=== PATIENT | female | born 1995 ===

== ENCOUNTER 2016-07-23 12:45 | Emergency (ER) | payer BC, OTHER ==
[~2016-07-23] VITALS: Ht 168.9 cm; Wt 53.0 kg
[2016-07-23 12:57] VITALS: TEMP 36.6; Ht 168.9 cm; Wt 53.0 kg
[2016-07-23] MEDS ORDERED: IBUPROFEN 600 MG TAB PO STA (13:12)
--- NOTE | 2016-07-23 14:02 | DIAGNOSTIC IMAGING REPORT ---
RIGHT FOOT MIN 3 VIEWS ROUTINE CLINICAL HISTORY: Right foot pain status post trauma COMPARISON: None. DISCUSSION: No fractures or dislocations are visualized. IMPRESSION: No fractures identified. Electronically signed by: Erasmo Medellin M.D. 07/23/2016 2:00 PM Dictated Date/Time: 07/23/2016 1:59 PM
--- NOTE | 2016-07-23 14:07 | DIAGNOSTIC IMAGING REPORT ---
RIGHT KNEE 1 OR 2 VIEWS ROUTINE CLINICAL HISTORY: Right knee pain status post trauma COMPARISON: None. DISCUSSION: No fractures or dislocations are visualized. There are no erosive or destructive changes. IMPRESSION: Unremarkable conventional radiographic evaluation of the right knee. Electronically signed by: Erasmo Medellin M.D. 07/23/2016 2:05 PM Dictated Date/Time: 07/23/2016 2:04 PM
--- NOTE | 2016-07-23 14:19 | EMERGENCY ROOM VISIT NOTE ---
ED Visit Note First contact with patient: 13:07 CHIEF COMPLAINT: Right knee and right foot injury HISTORY OF PRESENT ILLNESS: This 20-year-old female presents the ER with 2 complaints. First complaint is of right foot pain. The patient states yesterday she was doing martial arts and was thrown to the floor striking the medial aspect of her foot onto the floor. Since that time she has pain over the first metatarsal and great toe. The patient has been taking Tylenol for pain. The patient denies any prior injury to the toe. The patient also is complaining of right knee pain for approximately 1 week. The patient states she gets injured frequently at martial arts and does not remember a specific injury but she has difficulty bending her knee. The patient denies any giving out or locking of the knee. The patient denies any redness. REVIEW OF SYSTEMS: 6 system review was performed and was negative unless stated otherwise in history of present illness. PMH: The patient is healthy; spinal cord surgery SOCIAL HISTORY: Patient is a college student. The patient denies any tobacco use but admits to occasional alcohol use. PHYSICAL EXAM: Vital Signs: Were reviewed Reviewed Nurse's notes. GEN.: 20-year -old female appears in no acute distress. MENTAL STATUS: Alert, oriented, and cooperative. RIGHT KNEE: No gross bony deformity noted. The patient is tender to palpation over the patella. There is no joint effusion. The range of motion is limited secondary to pain. There is no ligamentous instability. The skin is normal and intact. The patient walks with an antalgic gait. RIGHT FOOT : No gross bony deformity noted. The patient has erythema and edema noted over the distal portion of the first metatarsal as well as the great toe. Limited range of motion of the great toe secondary to pain. Remainder foot is unremarkable. EMERGENCY DEPARTMENT COURSE: The patient was evaluated. The patient was given Motrin 600 mg by mouth for pain. X-ray of the right foot and right knee were ordered and interpreted by the radiologist and myself. DIAGNOSTICS:RIGHT FOOT MIN 3 VIEWS ROUTINE CLINICAL HISTORY: Right foot pain status post trauma COMPARISON: None. DISCUSSION: No fractures or dislocations are visualized. IMPRESSION: No fractures identified. Electronically signed by: Erasmo Medellin M.D. 07/23/2016 2:00 PM Dictated Date/Time: 07/23/2016 1:59 PM RIGHT KNEE 1 OR 2 VIEWS ROUTINE CLINICAL HISTORY: Right knee pain status post trauma COMPARISON: None. DISCUSSION: No fractures or dislocations are visualized. There are no erosive or destructive changes. IMPRESSION: Unremarkable conventional radiographic evaluation of the right knee. Electronically signed by: Erasmo Medellin M.D. 07/23/2016 2:05 PM The patient was informed of the findings. The patient was given crutches. The patient was discharged home in stable condition. DIAGNOSIS: Right foot contusion Right knee strain DISCHARGE INSTRUCTIONS: Ibuprofen 400 mg every 6 hours with food for pain. Ice intermittently over the next 24 hours. Keep leg elevated whenever possible. Ambulate with crutches until weightbearing is tolerable without them. If symptoms are not improving in 3-5 days recommend follow-up with orthopedics. Allergies Coded Allergies: No Known Allergies (Unverified , 07/23/16) Vital Signs Date Time Temp Pulse Resp B/P Pulse Ox O2 Delivery O2 Flow Rate FiO2 07/23/16 12:57 36.6 74 16 115/75 99 Room Air Medications Administered Medications (Trade) Dose Ordered Sig/Marta Route Start Time Stop Time Status Last Admin Dose Admin Ibuprofen (Motrin Tab) 600 mg NOW STAT PO 07/23/16 13:12 07/23/16 13:13 DC 07/23/16 13:23 600 MG Departure Information Referrals No Doctor, Assigned (PCP) Patient Instructions [facility]
[2016-07-23] MEDS ORDERED: ACET-1256 PO (14:29)
[2016-07-23 14:36] VITALS: BP 115/75; PULSE 74; O2SAT 99
== END 2016-07-23 14:37 | disposition home or self-care (01) ==
LOC: C.EDB 12:49 → EDBD 12:49 → C.EDD 14:37
DX: S90.31XA Contusion of right foot, initial encounter (principal); S86.911A Strain of unspecified muscle(s) and tendon(s) at lower leg level, right leg, initial encounter; W22.8XXA Striking against or struck by other objects, initial encounter; Y93.75 Activity, martial arts; Z98.890 Other specified postprocedural states